=== PATIENT | female | born 1975 ===

== ENCOUNTER 2017-12-28 14:54 | Emergency (ER) | payer BC, OTHER ==
--- NOTE | 2017-12-28 17:55 | UC ---
General HPI - HPI Summary HPI Summary: pt found a tick behind R knee yesterday. she removed it but does not know how long it was there. she washed the site. denies fever, fatigue, rash, joint pain. - History of Current Complaint Chief Complaint: ADAkin Stated Complaint: TICK BITES Time Seen by Provider: 12/28/17 17:47 Hx Obtained From: Patient Pain Intensity: 0 Aggravating: nothing Alleviating: nothing - Allergy/Home Medications Allergies/Adverse Reactions: Allergies Allergy/AdvReac Type Severity Reaction Status Date / Time No Known Allergies Allergy Verified 12/28/17 15:48 PMH/Surg Hx/FS Hx/Imm Hx Previously Healthy: Yes - Surgical History Surgical History: None - Family History Known Family History: Positive: Cardiac Disease, Blood Disorder - Social History Occupation: Employed Full-time Lives: With Family Alcohol Use: None Substance Use Type: None Smoking Status (MU): Never Smoked Tobacco - Immunization History Vaccination Up to Date: Yes Review of Systems Constitutional: Negative Skin: Negative Eyes: Negative ENT: Negative Respiratory: Negative Cardiovascular: Negative Gastrointestinal: Negative Genitourinary: Negative Motor: Negative Neurovascular: Negative Musculoskeletal: Negative Neurological: Negative Psychological: Negative Is Patient Immunocompromised?: No All Other Systems Reviewed And Are Negative: Yes Physical Exam Triage Information Reviewed: Yes Appearance: Well-Appearing Vital Signs: Initial Vital Signs Temp 98.7 F 12/28/17 15:43 Pulse 65 12/28/17 15:43 Resp 16 12/28/17 15:43 BP 127/89 12/28/17 15:43 Pulse Ox 100 12/28/17 15:43 Vital Signs Reviewed: Yes Eyes: Positive: Conjunctiva Clear ENT: Positive: Normal ENT inspection, Nasal congestion Neck: Positive: Supple, Nontender, No Lymphadenopathy Respiratory: Positive: Lungs clear, Normal breath sounds Cardiovascular: Positive: RRR, No Murmur Abdomen Description: Positive: Nontender, No Organomegaly, Soft. Negative: Distended, Guarding Bowel Sounds: Positive: Present Musculoskeletal: Positive: ROM Intact Neurological: Positive: Alert Psychological: Positive: Age Appropriate Behavior Skin Exam: Normal, Other - small abrasion behind R knee where tick removed. Course/Dx - Differential Dx - Multi-Symptom Provider Diagnoses: Tick bite behind R knee Discharge - Sign-Out/Discharge Documenting (check all that apply): Discharge/Admit/Transfer - Discharge Plan Condition: Stable Disposition: HOME Prescriptions: DOXYcycline CAP(*) [DOXYcycline 100MG CAP(*)] 200 mg PO ONCE #2 cap Patient Education Materials: Tick Bite (ED) Referrals: Ani Panchal PA [Primary Care Provider] - If Needed - Billing Disposition and Condition Condition: STABLE Disposition: HOME
[2017-12-28 17:59] VITALS: BP 134/88
== END 2017-12-28 18:01 | disposition home or self-care (01) ==
LOC: UCCORT 14:54
DX: S80.261A Insect bite (nonvenomous), right knee, initial encounter (principal); W57.XXXA Bitten or stung by nonvenomous insect and other nonvenomous arthropods, initial encounter; Y92.9 Unspecified place or not applicable
CPT/HCPCS: 99212; G0463